=== PATIENT | female | born 1990 ===

== ENCOUNTER 2017-04-26 13:30 | Emergency (ER) | payer MEDICAID ==
[2017-04-26 13:30] VITALS: BMI 34.0
[2017-04-26 13:52] VITALS: RESP 18
[2017-04-26] MEDS ORDERED: Sodium Chloride 0.9% 1,000 ML IV STA (14:52)
--- NOTE | 2017-04-26 14:52 | ED PDOC ---
HPI: Abdomen Time Seen by Provider: 04/26/17 14:11 Chief Complaint (Nursing): GI Problem Chief Complaint (Provider): Abdominal pain History Per: Patient Additional Complaint(s): 27 yo female, no PMH, presents to ED with complaints of abdominal cramping since this am, associated with 4 episodes of non bloody, non billious vomiting, and > 10 episodes of loose, watery, non bloody stools. Not tolerating Po. No fever or chills. Past Medical History Reviewed: Nursing Documentation, Vital Signs Vital Signs: Last Vital Signs Temp 99 F 04/26/17 13:49 Pulse 96 H 04/26/17 13:49 Resp 18 04/26/17 13:49 BP 134/100 H 04/26/17 13:49 Pulse Ox 100 04/26/17 14:52 - Medical History PMH: Asthma - Surgical History Surgical History: Appendectomy (ovarian cyst), (x 2) - Family History Family History: States: Unknown Family Hx - Living Arrangements Living Arrangements: With Family - Social History Current smoker - smoking cessation education provided: No Alcohol: Social Drugs: Denies - Immunization History Hx Tetanus Toxoid Vaccination: No Hx Influenza Vaccination: No Hx Pneumococcal Vaccination: No - Home Medications Home Medications: Ambulatory Orders Medication Instructions Recorded Dicyclomine [Bentyl] 10 mg PO QID PRN #10 cap 04/26/17 Ondansetron ODT [Zofran ODT] 4 mg PO Q6 PRN #10 odt 04/26/17 - Allergies Allergies/Adverse Reactions: Allergies Allergy/AdvReac Type Severity Reaction Status Date / Time No Known Allergies Allergy Verified 04/26/17 14:41 Review of Systems ROS Statement: Except As Marked, All Systems Reviewed And Found Negative Gastrointestinal: Positive for: Nausea, Vomiting, Abdominal Pain, Diarrhea Physical Exam - Reviewed Nursing Documentation Reviewed: Yes Vital Signs Reviewed: Yes - Physical Exam Appears: Positive for: Well, Non-toxic, No Acute Distress Head Exam: Positive for: ATRAUMATIC, NORMAL INSPECTION, NORMOCEPHALIC Skin: Positive for: Normal Color, Warm, DRY Eye Exam: Positive for: EOMI, Normal appearance, PERRL ENT: Positive for: Normal ENT Inspection Neck: Positive for: Normal, Painless ROM Cardiovascular/Chest: Positive for: Regular Rate, Rhythm Respiratory: Positive for: CNT, Normal Breath Sounds Gastrointestinal/Abdominal: Positive for: Normal Exam, Bowel Sounds, Soft. Negative for: Tenderness Back: Positive for: Normal Inspection Extremity: Positive for: Normal ROM Neurologic/Psych: Positive for: Alert, Oriented - Laboratory Results Result Diagrams: 04/26/17 15:00 04/26/17 15:00 - ECG O2 Sat by Pulse Oximetry: 100 Medical Decision Making Medical Decision Making: IV access established and treatment initiated with IVF, Zofran and Bentyl Labs resulted and reviewed with Pt who demonstrated full understanding Abdomen soft, non tender and non distended Pt afebrile. Stable for discharge on re-eval. Disposition - Clinical Impression Clinical Impression: Gastroenteritis - Patient ED Disposition Is Patient to be Admitted: No - Disposition Disposition: Routine/Home Disposition Time: 17:27 Condition: GOOD Prescriptions: Dicyclomine [Bentyl] 10 mg PO QID PRN #10 cap PRN Reason: Pain, Mild (1-3) Ondansetron ODT [Zofran ODT] 4 mg PO Q6 PRN #10 odt PRN Reason: Nausea/Vomiting Instructions: Gastroenteritis (ED) - POA Present On Arrival: None
[2017-04-26 15:14] LABS: BASO % 0.4 % (0.0-2.0); EOS # 0.1 K/uL (0.0-0.7); EOS % 0.9 % (0.0-4.0); HEMATOCRIT 37.4 % (34.0-47.0); LYMPH # 0.6 K/uL (1.0-4.3); LYMPH % 7.8 % (20.0-40.0); MEAN CELL VOLUME 89.3 fl (81.0-99.0); MEAN CORPUSCULAR HEMOGLOBIN 29.6 pg (27.0-31.0); MEAN CORPUSCULAR HGB CONC 33.2 g/dL (33.0-37.0); MEAN PLATELET VOLUME 9.2 fl (7.2-11.7); MONO # 0.4 K/uL (0.0-0.8); MONO % 5.4 % (0.0-10.0); NEUT # 6.6 K/uL (1.8-7.0); NEUT % 85.5 % (50.0-75.0); PLATELET COUNT 225 K/uL (130-400); RED CELL DISTRIBUTION WIDTH 13.2 % (11.5-14.5); WHITE BLOOD COUNT 7.8 K/uL (4.8-10.8)
[2017-04-26 15:22] LABS: ALB/GLOB RATIO 1.3 (1.0-2.1); ALKALINE PHOSPHATASE 69 U/L (38-126); ALT/SGPT 42 U/L (9-52); AMYLASE 92 U/L (30-110); AST/SGOT 26 U/L (14-36); BILIRUBIN,TOTAL 0.7 mg/dl (0.2-1.3); BLOOD UREA NITROGEN 13 mg/dl (7-17); CALCIUM 9.1 mg/dL (8.4-10.2); CARBON DIOXIDE 23 mmol/L (22-30); CHLORIDE 103 mmol/L (98-107); GFR AFRICAN-AMERICAN > 60; GLUCOSE,RANDOM 95 mg/dL (65-105); LIPASE 35 U/L (23-300); POTASSIUM 4.1 MMOL/L (3.6-5.0); SODIUM 138 mmol/l (132-148); TOTAL PROTEIN 8.4 G/DL (6.3-8.2)
[2017-04-26 17:40] VITALS: BP 113/65; PULSE 86; TEMP 98.7; O2SAT 98
[2017-04-26 18:28] LABS: EOSINOPHIL 1 % (0-7); NEUTROPHIL 83 % (42-75); TOTAL CELLS COUNTED 100
== END 2017-04-26 17:47 | disposition home or self-care (01) ==
LOC: H.ER 13:30
DX: K52.9 Noninfective gastroenteritis and colitis, unspecified (principal); J45.909 Unspecified asthma, uncomplicated

== ENCOUNTER 2017-05-29 10:51 | Emergency (ER) | payer MEDICAID ==
[2017-05-29 10:54] VITALS: TEMP 97; O2SAT 99
[2017-05-29 10:55] VITALS: BMI 24.0
[2017-05-29] MEDS ORDERED: Albuterol-Ipratrop 3 mg / 0.5 (3 ml) UD INH STA (11:20)
--- NOTE | 2017-05-29 11:20 | ED PDOC ---
HPI: General Adult Time Seen by Provider: 05/29/17 11:19 Chief Complaint (Nursing): ENT Problem Chief Complaint (Provider): sore throat History Per: Patient (27 y/o fmeal here with sore throat x 2 days worsening today. Notes cough. Has h/o Asthma. No fevers/chills. Patient has children at home that recently recovered from viral illness.) Past Medical History Reviewed: Historical Data, Nursing Documentation, Vital Signs Vital Signs: Last Vital Signs Temp 97 F L 05/29/17 10:54 Pulse 90 05/29/17 10:54 Resp BP 99/58 L 05/29/17 10:54 Pulse Ox 99 05/29/17 11:21 - Medical History PMH: Asthma - Surgical History Surgical History: Appendectomy (ovarian cyst), (x 2) - Family History Family History: States: Unknown Family Hx - Immunization History Hx Tetanus Toxoid Vaccination: No Hx Influenza Vaccination: No Hx Pneumococcal Vaccination: No - Home Medications Home Medications: Ambulatory Orders Medication Instructions Recorded Dicyclomine [Bentyl] 10 mg PO QID PRN #10 cap 04/26/17 Ondansetron ODT [Zofran ODT] 4 mg PO Q6 PRN #10 odt 04/26/17 Albuterol HFA [Ventolin HFA 90 2 puff IH [id number] PRN #1 inhaler 05/29/17 mcg/actuation (8 g)] predniSONE [predniSONE Tab] 3 tab PO DAILY #15 tab 05/29/17 - Allergies Allergies/Adverse Reactions: Allergies Allergy/AdvReac Type Severity Reaction Status Date / Time No Known Allergies Allergy Verified 04/26/17 14:41 Review of Systems ROS Statement: Except As Marked, All Systems Reviewed And Found Negative Physical Exam - Reviewed Nursing Documentation Reviewed: Yes Vital Signs Reviewed: Yes - Physical Exam Appears: Positive for: Well, Non-toxic, No Acute Distress Head Exam: Positive for: ATRAUMATIC, NORMAL INSPECTION, NORMOCEPHALIC Skin: Positive for: Normal Color, Warm, DRY Eye Exam: Positive for: EOMI, Normal appearance, PERRL ENT: Positive for: Other (no pharyngeal erythema. hyperinjected uvula noted.). Negative for: Normal ENT Inspection Neck: Positive for: Normal, Painless ROM Cardiovascular/Chest: Positive for: Regular Rate, Rhythm Respiratory: Positive for: Normal Breath Sounds Gastrointestinal/Abdominal: Positive for: Normal Exam, Bowel Sounds, Soft Back: Positive for: Normal Inspection Extremity: Positive for: Normal ROM Neurologic/Psych: Positive for: Alert, Oriented - ECG O2 Sat by Pulse Oximetry: 99 - Progress ED Course And Treament: rapid strep neg duoneb x 1 dose Pateint notes improvement after nebulizer. Disposition - Clinical Impression Clinical Impression: Viral illness - Patient ED Disposition Is Patient to be Admitted: No - Disposition Disposition: Routine/Home Disposition Time: 12:48 Condition: FAIR Prescriptions: Albuterol HFA [Ventolin HFA 90 mcg/actuation (8 g)] 2 puff IH [id number] PRN #1 inhaler PRN Reason: Cough predniSONE [predniSONE Tab] 3 tab PO DAILY #15 tab Instructions: Reactive Airways Disease (ED), Viral Syndrome (ED) Forms: [facility] ED School/Work Excuse
[2017-05-29] MEDS ORDERED: Albuterol-Ipratrop 3 mg / 0.5 (3 ml) UD ONE (11:35)
[2017-05-29 13:17] VITALS: BP 126/73; PULSE 85; RESP 16
== END 2017-05-29 13:16 | disposition home or self-care (01) ==
LOC: H.ER 10:51
DX: B34.9 Viral infection, unspecified (principal); J45.909 Unspecified asthma, uncomplicated

== ENCOUNTER 2017-11-10 11:09 | Emergency (ER) | payer MEDICAID ==
[2017-11-10 11:10] VITALS: BMI 24.0
[2017-11-10 11:25] VITALS: BP 114/72; PULSE 80; RESP 18; TEMP 98.5; O2SAT 98
--- NOTE | 2017-11-10 11:45 | ED PDOC ---
Upper Extremity Pain/Injury Time Seen by Provider: 11/10/17 11:42 Chief Complaint (Nursing): Upper Extremity Problem/Injury Chief Complaint (Provider): bilateral thumb/hand pain History Per: Patient (27 y/o female here with bilateral hand pain ongoing associated with working at [employer]. States her work involves multiple repetitive movements for 12 hours shifts and has developed pain along thumbs and forearms. Notes increasing difficulty with picking up objects at home. Has stopped use of left hand with improvement. Was at work today but pain increased and sent for evaluation to ED.) Past Medical History Reviewed: Historical Data, Nursing Documentation, Vital Signs Vital Signs: Last Vital Signs Temp 98.5 F 11/10/17 11:21 Pulse 80 11/10/17 11:21 Resp 18 11/10/17 11:21 BP 114/72 11/10/17 11:21 Pulse Ox 98 11/10/17 11:21 - Medical History PMH: Asthma - Surgical History Surgical History: Appendectomy (ovarian cyst), (x 2) - Family History Family History: States: Unknown Family Hx - Immunization History Hx Tetanus Toxoid Vaccination: No Hx Influenza Vaccination: No Hx Pneumococcal Vaccination: No - Home Medications Home Medications: Ambulatory Orders Medication Instructions Recorded Dicyclomine [Bentyl] 10 mg PO QID PRN #10 cap 04/26/17 Ondansetron ODT [Zofran ODT] 4 mg PO Q6 PRN #10 odt 04/26/17 Albuterol HFA [Ventolin HFA 90 2 puff IH [id number] PRN #1 inhaler 05/29/17 mcg/actuation (8 g)] predniSONE [predniSONE Tab] 3 tab PO DAILY #15 tab 05/29/17 Naproxen 1 tab PO BID #14 tab 11/10/17 - Allergies Allergies/Adverse Reactions: Allergies Allergy/AdvReac Type Severity Reaction Status Date / Time No Known Allergies Allergy Verified 04/26/17 14:41 Review of Systems ROS Statement: Except As Marked, All Systems Reviewed And Found Negative Musculoskeletal: Positive for: Hand Pain, Other (wrist pain) Physical Exam - Reviewed Nursing Documentation Reviewed: Yes Vital Signs Reviewed: Yes - Physical Exam Appears: Positive for: Well, Non-toxic, No Acute Distress Head Exam: Positive for: ATRAUMATIC, NORMAL INSPECTION, NORMOCEPHALIC Skin: Positive for: Normal Color, Warm, DRY Eye Exam: Positive for: EOMI, Normal appearance, PERRL ENT: Positive for: Normal ENT Inspection Neck: Positive for: Normal, Painless ROM Cardiovascular/Chest: Positive for: Regular Rate, Rhythm Respiratory: Positive for: CNT, Normal Breath Sounds Gastrointestinal/Abdominal: Positive for: Normal Exam, Bowel Sounds, Soft Back: Positive for: Normal Inspection Extremity: Positive for: Normal ROM, Other (tenderness noted along lateral aspect of right thumb.) Neurologic/Psych: Positive for: Alert, Oriented - ECG O2 Sat by Pulse Oximetry: 98 - Progress ED Course And Treament: Placed in thumb spica splint bilaterally for comfort. Disposition - Clinical Impression Clinical Impression: Tendonitis - Patient ED Disposition Is Patient to be Admitted: No - Disposition Referrals: Jesus Quijano MD [Medical Doctor] - Disposition: Routine/Home Disposition Time: 11:48 Condition: FAIR Prescriptions: Naproxen 1 tab PO BID #14 tab Instructions: Tendinitis (ED), Hand Sprain (ED) Forms: [employer] [facility] (E[place]ian), [facility] ED School/Work Excuse
== END 2017-11-10 12:17 | disposition home or self-care (01) ==
LOC: H.ER 11:09
DX: M77.9 Enthesopathy, unspecified (principal)